=== PATIENT | female | born 1955 | race Caucasian/White ===

== ENCOUNTER 2020-01-24 10:15 | Outpatient (CLI) | payer OTHER | END 2020-01-24 10:16 | disposition critical access hospital (66) | LOC: EMS 10:15 | PROVIDERS: ATTEND Surgery | DX: M25.551 Pain in right hip (principal); M79.604 Pain in right leg | CPT/HCPCS: A0425; A0429 ==

== ENCOUNTER 2020-01-24 10:33 | Emergency (ER) | payer OTHER ==
[2020-01-24] MEDS ORDERED: KETOROLAC 60 MG/2 ML VIAL IM STA (10:40)
[2020-01-24] MEDS ORDERED: HYDROmorphone 1 MG/ML CARPUJECT IM STA (10:40)
--- NOTE | 2020-01-24 10:41 | ED Physician Documentation ---
PD HPI LOWER EXT INJURY - Stated complaint Stated Complaint: LEG PX - History obtained from History obtained from: Patient - Additional information Additional information: 65-year-old woman with history of hypertension and diabetes who is visiting from [place]. She has had both knees replaced in the past. About 6 weeks ago developed gradual onset inguinal pain much worse with motion. She did a teleconference with her doctor couple weeks ago and reportedly an x-ray was done at [facility] with "mild" osteoarthritis. Last night while moving the hip popped and now has much more severe pain. There is no fall onto the hip or specific i njury. Review of Systems Ten Systems: 10 systems reviewed and negative Constitutional: denies: Fever, Chills Cardiac: denies: Chest pain / pressure, Palpitations Respiratory: denies: Dyspnea, Cough GI: denies: Abdominal Pain PD PAST MEDICAL HISTORY - Past Medical History Cardiovascular: Hypertension, High cholesterol - Past Surgical History Past Surgical History: Yes Ortho: Knee replacement - Present Medications Home Medications: Ambulatory Orders Medication Instructions Recorded Confirmed Aspirin [Aspirin EC] 81 mg PO DAILY 01/24/20 01/24/20 Atorvastatin [Lipitor] 40 mg PO DAILY 01/24/20 01/24/20 Glipizide 5 mg PO BID 01/24/20 01/24/20 Hydrochlorothiazide 12.5 mg PO DAILY 01/24/20 01/24/20 Ibuprofen [Motrin] 800 mg PO Q8H PRN 01/24/20 01/24/20 Lisinopril [Zestril] 20 mg PO DAILY 01/24/20 01/24/20 Metformin HCl [Glucophage Xr] 500 mg PO DAILY 01/24/20 01/24/20 amLODIPine [Norvasc] 10 mg PO DAILY 01/24/20 01/24/20 - Allergies Allergies/Adverse Reactions: Allergies Allergy/AdvReac Type Severity Reaction Status Date / Time No Known Drug Allergies Allergy Verified 01/24/20 10:59 - Living Situation Living Situation: reports: With spouse/s.o. - Social History Does the pt smoke?: No - Family History Family history: reports: Non contributory PD ED PE NORMAL - Vitals Vital signs reviewed: Yes - General General: Alert and oriented X 3, Other (She appears uncomfortable with motion but relatively comfortable at rest.) - HEENT HEENT: PERRL, EOMI - Neck Neck: Supple, no meningeal sign, No bony TTP, No bruit - Cardiac Cardiac: RRR, No murmur - Respiratory Respiratory: No respiratory distress, Clear bilaterally - Abdomen Abdomen: Soft, Non tender - Back Back: No CVA TTP, No spinal TTP - Derm Derm: Normal color, Warm and dry - Extremities Extremities: Other (Mildly tender to the right hip laterally and over the inguinal ligament. No back or pelvic bone tenderness. She has profound pain with internal or external rotation of the right hip. Both knees have been replaced.) - Neuro Neuro: Alert and oriented X 3, Normal speech Results - Vitals Vitals: Vital Signs - 24 hr 01/24/20 01/24/20 01/24/20 10:40 11:14 11:51 Temperature 36.5 C Heart Rate 98 75 74 Respiratory 16 17 17 Rate Blood Pressure 167/62 H 167/66 H 146/55 H O2 Saturation 99 100 100 01/24/20 01/24/20 12:26 13:57 Temperature Heart Rate 74 75 Respiratory 18 17 Rate Blood Pressure 161/59 H 166/68 H O2 Saturation 94 95 Oxygen O2 Source Room air - Labs Labs: Laboratory Tests 01/24/20 01/24/20 01/24/20 11:53 11:53 11:53 WBC 9.0 RBC 3.67 L Hgb 11.7 L Hct 36.6 L MCV 99.7 H MCH 31.9 H MCHC 32.0 RDW 13.7 Plt Count 241 MPV 10.4 Neut # (Auto) 7.4 H Lymph # (Auto) 0.8 L Forrest # (Auto) 0.8 Eos # (Auto) 0.0 Baso # (Auto) 0.0 Absolute Nucleated RBC 0.00 Nucleated RBC % 0.0 PT 13.3 H INR 1.2 Sodium 142 Potassium 3.5 Chloride 105 Carbon Dioxide 18 L Anion Gap 19.0 H BUN 56 H Creatinine 1.8 H Estimated GFR (MDRD) 28 L Glucose 160 H Calcium 10.1 Total Bilirubin 1.2 H AST 30 ALT 20 Alkaline Phosphatase 47 Total Protein 8.3 H Albumin 4.5 Globulin 3.8 Albumin/Globulin Ratio 1.2 - Rads (name of study) R hip XR Radiology: EMP read contemporaneously (R femoral neck frx- Discussed with the radiologist, although not clearly pathologic as suggested by the history, it is potentially pathologic.) CT right hip Radiology: EMP read contemporaneously (Lucency around the fracture confirming likely pathologic nature as suggested by the history. Also a lucency in the ilium) PD MEDICAL DECISION MAKING - ED course ED course: 65-year-old woman who has a history of uterine cancer that did not require adjuvant treatment presents with worsening right hip pain and acutely worse since last night after being helped in bed. X-ray shows low femoral neck fracture and there appears to be lucency there and given the history and the lack of trauma I suspect this is a pathologic fracture. The case was discussed by phone with Matty Mcintosh, our on-call orthopedic physician at approximately 11:10 AM and he recommends transfer to a tertiary facility with orthopedic oncology. He viewed the images. Subsequently I spoke with Dr. Kirill Gonzalez at [facility] who will attempt to facilitate a transfer. CT was ordered to confirm pathologic nature of the fracture. We are also having trouble with pain management and I spoke with Anam Schuler of anesthesia who will come by and potentially do a block. CT confirmed the pathologic nature of the fracture. [facility] arranged for a bed for her at [facility], accepted by Dr Peters at [facility]. Departure - Departure Disposition: 02 Transfer Acute Care Hosp Clinical Impression: Pathological fracture of right hip Qualifiers: Pathology associated with fracture: unspecified disease Encounter type: initial encounter Qualified Code(s): M84.451A - Pathological fracture, right femur, initial encounter for fracture Condition: Stable
--- NOTE | 2020-01-24 11:03 | XRAY Report ---
PROCEDURE: Hip w/Pelvis 2-3V RT INDICATIONS: hip pain TECHNIQUE: AP pelvis with lateral view(s) of the right hip(s). COMPARISON: None. FINDINGS: Bones: Acute fracture involving right femoral neck is seen with superior migration of proximal femora l shaft in relation to femoral head. Bilateral hip joint osteoarthritic changes are seen. Degenerativ e disc disease in visualized lower lumbar spine is also noted.. Pelvic ring appears intact. No susp icious bony lesions. Soft tissues: The visualized bowel gas pattern is normal. No suspicious soft tissue calcifications. IMPRESSION: Acute displaced right femoral neck fracture as above. Reviewed by: Efrain Rivera MD on 01/24/2020 10:[address] [facility] Approved by: Efrain Rivera MD on 01/24/2020 10:[address] [facility] Station ID: [id number]
[2020-01-24] MEDS ORDERED: HYDROmorphone 1 MG/ML CARPUJECT IVP STA ×3 (11:44→17:30)
[2020-01-24 12:07] LABS: BASOPHILS % (AUTO) 0.2 %; EOSINOPHILS % (AUTO) 0.4 %; HGB - HEMOGLOBIN 11.7 g/dL (12.0-16.0); LYMPHOCYTES # (AUTO) 0.8 10^3/uL (1.5-3.5); LYMPHOCYTES % (AUTO) 8.5 %; MEAN CORPUSCULAR HEMOGLOBIN 31.9 pg (27.0-31.0); MEAN CORPUSCULAR VOLUME 99.7 fL (81.0-99.0); MEAN PLATELET VOLUME 10.4 fL (7.9-10.8); MONOCYTES # (AUTO) 0.8 10^3/uL (0.0-1.0); MONOCYTES % (AUTO) 8.5 %; NEUTROPHILS # (AUTO) 7.4 10^3/uL (1.5-6.6); PLT - PLATELET COUNT 241 10^3/uL (130-450); RED BLOOD COUNT 3.67 10^6/uL (4.20-5.40); RED CELL DISTRIBUTION WIDTH 13.7 % (12.0-15.0)
[2020-01-24 12:13] LABS: ALBUMIN 4.5 g/dL (3.2-5.5); ALBUMIN/GLOBULIN RATIO 1.2 (1.0-2.2); BILIRUBIN,TOTAL 1.2 mg/dL (0.2-1.0); CALCIUM 10.1 mg/dL (8.5-10.3); CREATININE 1.8 mg/dL (0.4-1.0); TOTAL PROTEIN 8.3 g/dL (6.7-8.2)
[2020-01-24 12:20] LABS: INR 1.2 (0.8-1.2); PT - PROTHROMBIN TIME 13.3 secs (9.9-12.6)
[2020-01-24] MEDS ORDERED: SODIUM CHLORIDE 0.9% 1,000 ML IV STA ×2 (13:36)
--- NOTE | 2020-01-24 13:47 | CT Report ---
PROCEDURE: LOWER EXTREMITY WO - RT INDICATIONS: hip frx, poss pathologic, from pelvis to mid femur TECHNIQUE: Noncontrast 3 mm axial sections acquired of the right hip and pelvis, with coronal and sagittal refor mats. COMPARISON: Pelvis radiographs dated same day. FINDINGS: Image quality: Excellent. Bones: Redemonstrated comminuted fracture involving the intertrochanteric region of the right femur. In the fracture area, there is loss of the expected trabecula and lytic appearance. There is also pe rmeative appearance of the cortex in this area and findings overall are suspicious for pathologic fra cture. Subcentimeter nonspecific lytic lesion involving the posterior medial right ilium on image 29/ 3. Nonspecific sub-5 mm areas of sclerosis within the right iliac wing image 17. Soft tissues: No lymphadenopathy identified. Scattered vascular calcifications. Muscles are grossly unremarkable. There is minimal right hip soft tissue subcutaneous swelling. IMPRESSION: Redemonstrated right intertrochanteric fracture. Lytic appearance of the proximal right femur in the area of fracture suggests pathologic fracture. Nonspecific subcentimeter focus of lucency involving t he right posteromedial ilium. Please correlate clinically and consider further evaluation with whole body bone scan. Reviewed by: Channing Vicente MD on 01/24/2020 1:45 PM PST Approved by: Channing Vicente MD on 01/24/2020 1:45 PM PST Station ID: [id number]
[2020-01-24] MEDS ORDERED: ONDANSETRON 4 MG/2 ML VIAL IVP STA ×2 (13:55→17:37)
[2020-01-24 16:01] LABS: C. PNEUMONIAE- RESP PCR PANEL NOT DETECTED
[2020-01-24 17:21] VITALS: BP 140/60
== END 2020-01-24 17:54 | disposition short-term general hospital (02) ==
LOC: ED 10:33
DX: M84.451A Pathological fracture, right femur, initial encounter for fracture (principal); Z85.42 Personal history of malignant neoplasm of other parts of uterus; Z96.653 Presence of artificial knee joint, bilateral; I10 Essential (primary) hypertension; E11.9 Type 2 diabetes mellitus without complications; Z79.84 Long term (current) use of oral hypoglycemic drugs; Z79.82 Long term (current) use of aspirin; Z20.828 Contact with and (suspected) exposure to other viral communicable diseases
CPT/HCPCS: 0202U; 36415; 51702; 73502; 73700; 80053; 85025; 85610; 96372; 96374; 96375; 96376; 99285; J1170